=== PATIENT | female | born 1975 | race American Indian/Alaskan Native ===

== ENCOUNTER 2016-12-08 20:55 | Emergency (ER) | payer MEDICAID, OTHER ==
[2016-12-08 21:12] VITALS: BP 120/63
[2016-12-08] MEDS ORDERED: HYDROmorphone 1 MG/ML Syringe IM ONE (22:12)
[2016-12-08] MEDS ORDERED: Promethazine 25 MG/ML SDV IM ONE (22:12)
--- NOTE | 2016-12-08 22:16 | EDM.PDOC ---
[id number] SEVERE PAIN IN LEG Time Seen by Provider: 12/08/16 22:13 Source: Reports: Patient History Limitations: Reports: No limitations - History of Present Illness INITIAL COMMENTS - FREE TEXT/NARRATIVE: c/o increase pain post op all day, has appt' with surgeon tomorrow. denies straining or injury. Allergies/ADRs: Allergies Iodine and Iodide Containing Produc Allergy (Verified 12/08/16 21:14) Nausea morphine Allergy (Verified 12/08/16 21:13) Rash Home Medications: Ambulatory Orders Omeprazole 20 mg PO DAILY 06/27/16 [Confirmed 12/08/16] Triamterene/Hydrochlorothiazid [Triamterene-HCTZ 37.5-25 MG] 1 each PO 06/27/16 amLODIPine [Norvasc] 10 mg PO DAILY 06/27/16 [Confirmed 12/08/16] Past Medical History HEENT History: Reports: Impaired vision Cardiovascular History: Reports: Hypertension Gastrointestinal History: Reports: Cholelithiasis, GERD - Past Surgical History GI Surgical History: Reports: Appendectomy, Cholecystectomy Social & Family History - Family History Family Medical History: Noncontributory - Tobacco Use Smoking Status *Q: Current Every Day Smoker Years of Tobacco use: 27 Packs/Tins Daily: 4 - Caffeine Use Caffeine Use: Reports: Coffee, Soda, Tea - Recreational Drug Use Recreational Drug Use: No Review of Systems - Review of Systems Review Of Systems: ROS reveals no pertinent complaints other than HPI. Trauma Exam - Physical Exam Exam: See Below Exam Limited By: No limitations General Appearance: Reports: alert, WD/WN, mild distress, other (crying) Head: Reports: atraumatic Ears: Reports: hearing grossly normal Throat/Mouth: Reports: Normal voice, No airway compromise Neck: Reports: non-tender, full range of motion Respiratory Exam: Reports: no respiratory distress Cardiovascular: Reports: regular rate, rhythm GI/Abdominal: Reports: soft, non tender Back: Reports: other (suture site no S/S infection, no ecchymosis, right radiculitis as before, gait limited to pain) Neurologic: Reports: no motor/sensory deficits, alert, normal mood/affect, oriented x 3 Skin: Reports: Normal color, Warm/dry Course - Vital Signs Last Recorded V/S: Last Vital Signs Temp 36.0 C 12/08/16 21:05 Pulse 101 H 12/08/16 21:05 Resp 21 H 12/08/16 21:05 BP 120/63 12/08/16 21:05 Pulse Ox 100 12/08/16 21:05 - Orders/Labs/Meds Meds: Medications Discontinued Medications Generic Name Dose Route Start Last Admin Trade Name Ramone PRN Reason Stop Dose Admin Hydromorphone HCl 2 mg 12/08/16 22:12 12/08/16 22:21 Dilaudid IM 12/08/16 22:13 2 mg ONETIME ONE Administration Promethazine HCl 25 mg 12/08/16 22:12 12/08/16 22:21 Phenergan IM 12/08/16 22:13 25 mg ONETIME ONE Administration Departure - Departure Time of Disposition: 21:05 Disposition: Home, Self-Care 01 Condition: good Clinical Impression: Post-op pain Instructions: Back Pain, Adult, [id number] Forms: ED Department Discharge Additional Instructions: 1) rest 2) follow up with surgeon tomorrow 3) try ice or heat to sore area
== END 2016-12-08 22:30 | disposition home or self-care (01) ==
LOC: DL.ED 20:55
DX: G89.18 Other acute postprocedural pain (principal); M79.605 Pain in left leg; Z98.1 Arthrodesis status; I10 Essential (primary) hypertension; K21.9 Gastro-esophageal reflux disease without esophagitis; F17.210 Nicotine dependence, cigarettes, uncomplicated; Z88.5 Allergy status to narcotic agent; Z91.041 Radiographic dye allergy status; Z90.49 Acquired absence of other specified parts of digestive tract
CPT/HCPCS: 96372; 99283; J1170; J2550

== ENCOUNTER 2016-12-09 05:43 | Emergency (ER) | payer OTHER ==
[2016-12-09 05:54] VITALS: BP 137/88
[2016-12-09] MEDS ORDERED: HYDROmorphone 1 MG/ML Syringe IM ONE (06:09)
[2016-12-09] MEDS ORDERED: Promethazine 25 MG/ML SDV IM ONE (06:09)
--- NOTE | 2016-12-09 06:12 | EDM.PDOC ---
ED HPI Trauma - General Chief Complaint: Lower Extremity Injury/Pain Stated Complaint: LEFT LEG PAIN,2ND VISIT Time Seen by Provider: 12/09/16 06:10 Source: Reports: Patient History Limitations: Reports: No limitations - History of Present Illness INITIAL COMMENTS - FREE TEXT/NARRATIVE: en route to appt' [place], pain returned. Allergies/ADRs: Allergies Iodine and Iodide Containing Produc Allergy (Verified 12/09/16 05:54) Nausea morphine Allergy (Verified 12/09/16 05:54) Rash Home Medications: Ambulatory Orders Omeprazole 20 mg PO DAILY 06/27/16 [Confirmed 12/09/16] Triamterene/Hydrochlorothiazid [Triamterene-HCTZ 37.5-25 MG] 1 each PO 06/27/16 amLODIPine [Norvasc] 10 mg PO DAILY 06/27/16 [Confirmed 12/09/16] Past Medical History HEENT History: Reports: Impaired vision Cardiovascular History: Reports: Hypertension Gastrointestinal History: Reports: Cholelithiasis, GERD - Past Surgical History GI Surgical History: Reports: Appendectomy, Cholecystectomy Other Musculoskeletal Surgeries/Procedures:: lumbar fusion on November 24, 2016 Social & Family History - Family History Family Medical History: Noncontributory - Tobacco Use Smoking Status *Q: Current Every Day Smoker Years of Tobacco use: 15 Packs/Tins Daily: 4 - Caffeine Use Caffeine Use: Reports: Coffee, Soda, Tea - Recreational Drug Use Recreational Drug Use: No Review of Systems - Review of Systems Review Of Systems: ROS reveals no pertinent complaints other than HPI. Trauma Exam - Physical Exam Exam: See Below Exam Limited By: No limitations General Appearance: Reports: alert, WD/WN, mild distress, other (crying) Head: Reports: atraumatic Ears: Reports: hearing grossly normal Throat/Mouth: Reports: Normal voice, No airway compromise Neck: Reports: non-tender, full range of motion Respiratory Exam: Reports: no respiratory distress Cardiovascular: Reports: regular rate, rhythm GI/Abdominal: Reports: soft, non tender Back: Reports: decreased range of motion, vertebral tenderness, other ( bilateral LS with radiculitis) Neurologic: Reports: no motor/sensory deficits, alert, oriented x 3 Skin: Reports: Normal color, Warm/dry Course - Vital Signs Last Recorded V/S: Last Vital Signs Temp 35.8 C 12/09/16 05:46 Pulse 89 12/09/16 05:46 Resp 18 12/09/16 05:46 BP 137/88 12/09/16 05:46 Pulse Ox 99 12/09/16 05:46 - Orders/Labs/Meds Orders: Active Orders 24 hr Category Date Time Status HYDROmorphone [Dilaudid] Med 12/09/16 06:09 Once 2 mg IM ONETIME ONE Promethazine [Phenergan] Med 12/09/16 06:09 Once 25 mg IM ONETIME ONE Departure - Departure Time of Disposition: 06:11 Disposition: Home, Self-Care 01 Condition: good Clinical Impression: Post-op pain, Lumbar radiculopathy, acute Forms: ED Department Discharge Additional Instructions: 1) follow up with surgeon per appointment - My Orders Last 24 Hours: My Active Orders 12/09/16 06:09 HYDROmorphone [Dilaudid] 2 mg IM ONETIME ONE Promethazine [Phenergan] 25 mg IM ONETIME ONE - Assessment/Plan Last 24 Hours: My Active Orders 12/09/16 06:09 HYDROmorphone [Dilaudid] 2 mg IM ONETIME ONE Promethazine [Phenergan] 25 mg IM ONETIME ONE
== END 2016-12-09 06:28 | disposition home or self-care (01) ==
LOC: DL.ED 05:43
DX: G89.18 Other acute postprocedural pain (principal); M54.16 Radiculopathy, lumbar region; I10 Essential (primary) hypertension; K21.9 Gastro-esophageal reflux disease without esophagitis; F17.210 Nicotine dependence, cigarettes, uncomplicated; Z88.5 Allergy status to narcotic agent; Z91.041 Radiographic dye allergy status; Z90.49 Acquired absence of other specified parts of digestive tract; Z98.1 Arthrodesis status
CPT/HCPCS: 96372; 99283; J1170; J2550

== ENCOUNTER 2022-03-19 14:12 | Emergency (ER) | payer MEDICAID ==
[2022-03-19 15:45] LABS: CORONAVIRUS COVID-19 NAA NEGATIVE (NEGATIVE)
[2022-03-19 16:12] VITALS: BP 132/59; PULSE 86
== END 2022-03-19 16:40 | disposition home or self-care (01) ==
LOC: DL.ED 14:12
DX: J06.9 Acute upper respiratory infection, unspecified (principal); I10 Essential (primary) hypertension; Z91.041 Radiographic dye allergy status; Z88.5 Allergy status to narcotic agent; Z20.822 Contact with and (suspected) exposure to COVID-19
CPT/HCPCS: 0240U; 99283

== ENCOUNTER 2023-04-01 13:26 | Emergency (ER) | payer MEDICAID ==
[2023-04-01] MEDS: Diphtheria,Pertussis(Acell),Tetanus Vaccine 0.5 ML Syringe IM ONE (13:54)
[2023-04-01] MEDS: Rabies Vaccine (Avian) 2.5 Unit Inj Kit IM ONE (13:54)
[2023-04-01] MEDS: Take Home: Amoxicillin/Clavulanate K 875-125 MG Tab, 6 Tab Pack PO ONE (14:05)
[2023-04-01 14:15] VITALS: BP 140/86; PULSE 102
== END 2023-04-01 14:12 | disposition home or self-care (01) ==
LOC: DL.ED 13:26
DX: S41.152A Open bite of left upper arm, initial encounter (principal); I10 Essential (primary) hypertension; E10.9 Type 1 diabetes mellitus without complications; K21.9 Gastro-esophageal reflux disease without esophagitis; F17.210 Nicotine dependence, cigarettes, uncomplicated; Z23 Encounter for immunization; Z88.5 Allergy status to narcotic agent; Z91.041 Radiographic dye allergy status; W54.0XXA Bitten by dog, initial encounter
CPT/HCPCS: 90471; 90675; 90715; 99282; 99283-25; A9270-GY